=== PATIENT | male | born 1940 | race Caucasian/White ===

== ENCOUNTER → 2018-06-08 | Day surgery (SDC) | payer OTHER, MEDICARE ==
[~2018-06-08] VITALS: Ht 175.3 cm; Wt 86.8 kg
[~2018-06-08] MED LIST: ALLOPURINOL300 M1 PO; AMLODIPINE BESY10 M1 PO; AMLODIPINE BESYL5 M1 PO; ASPIRIN EC81 M1 PO; ATORVASTATIN CA40 M1 PO; CALCIUM ACETAT667 M3 PO; DIALYVITE 8000.8 MG PO; FUROSEMIDE80 M1 PO; GLIMEPIRIDE1 M1 PO; HYDRALAZINE HCL50 M1 PO; LOPRESSOR100 M1 PO; LOSARTAN POTAS100 M1 PO; METOPROLOL SUCC50 M2 PO; METOPROLOL TART25 M1 PO; OMEGA 3-6-9 11200 MG PO; PANTOPRAZOLE SO40 M1 PO; PHENAZOPYRIDIN200 M3 PO; SENNA8.6 M3 PO; TAMSULOSIN HCL0.4 M1 PO
[2018-06-08 10:23] LABS: ABSOLUTE BASOPHIL COUNT 0 /CUMM (0.0-0.2); ABSOLUTE EOSINOPHIL COUNT 0.1 /CUMM (0.0-0.7); ABSOLUTE GRANULOCYTE CT 3.9 /CUMM (1.4-6.5); ABSOLUTE LYMPH COUNT 1.2 /CUMM (1.2-3.4); ABSOLUTE MONOCYTE COUNT 0.3 /CUMM (0.10-0.60); BASOPHIL % 0.2 % (0.0-2.0); EOSINOPHIL % 1.2 % (0-5); GRANULOCYTE % 71.4 % (42.2-75.2); HEMATOCRIT 34.2 % (42-52); MEAN CORPUSCULAR HGB 30.1 PG (27.0-31.0); MEAN CORPUSCULAR VOLUME 88.6 FL (80.0-94.0); MEAN PLATELET VOLUME 6.2 FL (7.4-10.4); PLATELET COUNT 155 /CUMM (130-400); RED BLOOD CELL CT 3.86 /CUMM (4.70-6.10); WHITE BLOOD CELL COUNT 5.5 /CUMM (4.8-10.8)
--- NOTE | 2018-06-08 12:59 | Operative Report ---
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 A 6 [place] sheath was inserted. A retrograde fistulogram was obtained including all arm and central veins. Aneurysmal dilatation was noted in the distal fistula at 2 segments that was mild to moderate there is no evidence of significant stenosis throughout the fistula. There is no evidence of stenosis at the cephalic arch or through the subclavian vein. At this point a 2-0 nylon suture was placed in a [id number] and the sheath was removed this was used for hemostasis sterile dressing was applied patient tolerated procedure well was taken to recovery patient
--- NOTE | 2018-06-08 14:03 | RADIOLOGY REPORT ---
Fluoroscopy was provided in the OR during left upper extremity fistulogram performed by Dr. Brandt. Fluoroscopy time was 1 minute Cumulative dose was 1.22 rad 6 digital subtraction angiography series were submitted. Images demonstrate a patent left upper extremity fistula. The central veins appear to be patent without evidence of a hemodynamically significant stenosis. No evidence of contrast extravasation. Please refer to operative report for full procedure details.
== END ==
LOC: STS 02:50
PROVIDERS: Surgery Vascular Surgery
DX: T82.898A Other specified complication of vascular prosthetic devices, implants and grafts, initial encounter (principal); E11.22 Type 2 diabetes mellitus with diabetic chronic kidney disease; I13.2 Hypertensive heart and chronic kidney disease with heart failure and with stage 5 chronic kidney disease, or end stage renal disease; I12.0 Hypertensive chronic kidney disease with stage 5 chronic kidney disease or end stage renal disease; N18.6 End stage renal disease; Z99.2 Dependence on renal dialysis; I25.10 Atherosclerotic heart disease of native coronary artery without angina pectoris; K21.9 Gastro-esophageal reflux disease without esophagitis; N25.81 Secondary hyperparathyroidism of renal origin
CPT/HCPCS: 36415; 76000; C1725; J0131; J2001; J2250; Q9967